=== PATIENT | female | born 1945 | race Caucasian/White ===

== ENCOUNTER 2022-10-06 07:55 | Day surgery (SDC) | payer MEDICARE ==
[2022-10-06] VITALS (11 sets, daily range): BP systolic 106–147; BP diastolic 53–115
[~2022-10-06] VITALS: Ht 172.7 cm; Wt 75.8 kg
[2022-10-06] MEDS ORDERED: diphenhydrAMINE 25mg capsule PO PRN (08:15)
[2022-10-06] MEDS ORDERED: normal saline 1,000 ML IV SCH (08:15)
[2022-10-06 09:14] LABS: BASOPHILS # (AUTO) 0.1 X10'3 (0-0.2); BASOPHILS % (AUTO) 0.9 % (0-1); EOSINOPHILS # (AUTO) 0.3 X10'3 (0-0.9); EOSINOPHILS % (AUTO) 4.1 % (0-6); HEMATOCRIT 44.2 % (35.0-45.0); HEMOGLOBIN 14.8 g/dl (12.0-16.0); LYMPHOCYTES # (AUTO) 2.6 X10'3 (1.1-4.8); LYMPHOCYTES % (AUTO) 42.5 % (21-51); MEAN CORPUSCULAR HEMOGLOBIN 29.3 PG (27.0-31.0); MEAN CORPUSCULAR HGB CONC 33.5 g/dL (33.0-36.5); MEAN CORPUSCULAR VOLUME 87.5 FL (78-98); MEAN PLATELET VOLUME 7.1 FL (7.4-10.4); MONOCYTES # (AUTO) 0.4 X10'3 (0-0.9); MONOCYTES % (AUTO) 5.8 % (2-12); NEUTROPHILS # (AUTO) 2.8 X10'3 (1.8-7.7); NEUTROPHILS % (AUTO) 46.7 % (42-75); PLATELET COUNT 316 X10'3 (140-440); RED BLOOD COUNT 5.05 X10'6 (4.20-5.60); WHITE BLOOD COUNT 6.1 X10'3 (4.5-11.0)
[2022-10-06 09:23] LABS: ALBUMIN 4.1 G/DL (3.4-5.0); ANION GAP 8 (8-16); BLOOD UREA NITROGEN 18 MG/DL (7-18); BUN/CREATININE RATIO 14.8 (6.6-38.0); CALCIUM 9.6 MG/DL (8.5-10.1); CHLORIDE 104 MMOL/L (99-107); CREATININE 1.22 MG/DL (0.40-0.90); GLUCOSE 89 MG/DL (70-104); MAGNESIUM 2.4 MG/DL (1.5-2.4); POTASSIUM 4.4 MMOL/L (3.5-5.1); SODIUM 140 MMOL/L (135-145); TOTAL CARBON DIOXIDE 27.9 MMOL/L (24-32); eGFR 43 ML/MIN
[2022-10-06] MEDS ORDERED: PARO20TA6 PO (09:26)
[2022-10-06] MEDS ORDERED: PANT40TA54 (09:26)
[2022-10-06] MEDS ORDERED: FLEC50TA PO (09:26)
[2022-10-06] MEDS ORDERED: PROP10TA10 PO (09:26)
[2022-10-06] MEDS ORDERED: nitroGLYCERIN-Tridil 50MG/D5W 250 ML IV ONE (10:36)
[2022-10-06] MEDS ORDERED: midazolam 1 mg/ML 2ml injection ONE (10:36)
[2022-10-06] MEDS ORDERED: fentaNYL/PF 50MCG/1 ML 2ML syringe ONE (10:36)
[2022-10-06] MEDS ORDERED: verapamil 2.5 mg/ml inj IV ONE (10:36)
[2022-10-06] MEDS ORDERED: iohexol 350MG/ML 100ml bottle IV ONE ×3 (10:37→12:31)
[2022-10-06] MEDS ORDERED: heparin 1,000unit/ml 10ml vial 10 ML ONE (10:37)
[2022-10-06] MEDS ORDERED: LIDOcaine 1% (10mg/ml) 2ml vial ONE (10:37)
[2022-10-06] MEDS ORDERED: LIDOcaine 1% 30ml preserv. free vial ONE (12:15)
[2022-10-06] MEDS ORDERED: clopidogrel 300mg tablet ONE (12:47)
--- NOTE | 2022-10-06 13:02 | NUR ---
Bedside report received from DENILSON Whitt. Vital signs stable. NSR/SB on monitor. Right radial site stable with vasc band in place. No bleeding/hematoma noted. Right femoral site stable with perclose in place. Dressing CDI. No bleeding/hematoma noted. Distal pulse intact.
[2022-10-06] MEDS ORDERED: normal saline 1000ml 1,000 ML IV SCH (13:20)
[2022-10-06] MEDS ORDERED: HYDROcodone/acetaminophen 5mg/325mg tablet PO PRN (13:20)
[2022-10-06] MEDS ORDERED: ondansetron/PF 4mg/2ml inj IV PRN (13:20)
[2022-10-06] MEDS ORDERED: proCHLORperazine 10 MG/2 ml inj IV PRN (13:20)
[2022-10-06] MEDS ORDERED: HYDROcodone/acetaminophen 10/325mg tab PO PRN (13:20)
== END 2022-10-06 17:05 | disposition home or self-care (01) ==
LOC: SSTAY O 07:55
PROVIDERS: ATTEND Internal Medicine Cardiovascular Disease
DX: R94.39 Abnormal result of other cardiovascular function study (principal); I25.10 Atherosclerotic heart disease of native coronary artery without angina pectoris; I65.23 Occlusion and stenosis of bilateral carotid arteries; I51.7 Cardiomegaly; K21.9 Gastro-esophageal reflux disease without esophagitis; G47.30 Sleep apnea, unspecified; I10 Essential (primary) hypertension; F41.9 Anxiety disorder, unspecified; Z79.899 Other long term (current) drug therapy; Z87.891 Personal history of nicotine dependence
CPT/HCPCS: 36415; 80048; 83735; 85025; 85610; 93005; 93458; 99152; 99153; A6258; C1725; C1751; C1760; C1769; C1874; C1894; C9600; J1644; J2250; J3010; J3490; J7030; Q0163; Q9967; A4620; A6402